=== PATIENT | female | born 1990 | race Caucasian/White ===

== ENCOUNTER 2021-01-25 12:39 | Inpatient (IN) | payer MEDICAID, OTHER ==
[~2021-01-25] VITALS: Ht 167.6 cm; Wt 50.0 kg
--- NOTE | 2021-01-25 12:48 | NUR ---
PT BIB [facility], POST ARREST. PER EMS, PT WAS "WITNESSED" BY HER HOUSEMATE BECOME APNIC, AND EVENTUALY HE STARTED CPR. WHEN EMS ARRIVED, PT FOUND TO BE PULSELESS AND APNIC. CPR CONTINUED AND PT WAS ADMINISTERED EPI X3 ROUNDS WELL NARCAN X2 DOSES. PT WAS INTUBATED IN THE FIELD WITH A 7.0 ET TUBE. WHEN PT ARRIVED TO ER, PT AT ACHIEVED ROSC, HOWEVER REMAINED APNIC WITH BVM RESPIRATIONS IN PROGRESS. PT WITH A STRONG CAROTID PULSE, CORESPONDING WITH MONITORS. PT GCS 3 WHEN ARRIVED TO ER. ERMFang WERNER AND RT RJEI AT BEDSIDE.
[2021-01-25] MEDS ORDERED: ALBUTEROL 0.5%, 20ML ONE (12:51)
--- NOTE | 2021-01-25 12:55 | NUR ---
PT PLACED ON VENT BY REJI RT, TOLERATED WELL. PT ON ETOC2 MONITORING.
[2021-01-25] MEDS ORDERED: SODIUM CHLORIDE FLUSH 10ML SYR IVF ONE (13:00)
[2021-01-25] MEDS ORDERED: methylPREDNISolone SOD SUCC 125 MG/2 ML IV ONE (13:00)
[2021-01-25] MEDS ORDERED: PLEASE ENTER ALLERGIES MC SCH (13:00)
[2021-01-25] MEDS ORDERED: SODIUM CHLORIDE 0.9% 1,000ML IVBOLUS ONE (13:00)
[2021-01-25] MEDS ORDERED: MAGNESIUM SULFATE PMX 2GM/50ML 50 ML IVPB ONE (13:00)
[2021-01-25] MEDS ORDERED: SODIUM CHLORIDE 0.9% 1,000 ML IV ONE (13:00)
[2021-01-25] MEDS ORDERED: PLEASE ENTER HEIGHT AND WEIGHT MC SCH (13:00)
[2021-01-25] MEDS ORDERED: methylPREDNISolone SOD SUCC 125 MG/2 ML ONE (13:03)
[2021-01-25] MEDS ORDERED: MAGNESIUM SULFATE PMX 2GM/50ML 50 ML ONE (13:03)
[2021-01-25] MEDS ORDERED: PROPOFOL 100 ML IV ONE (13:09)
[2021-01-25] MEDS: ALBUTEROL/IPRATROPIUM 2.5MG/0.5MG, 3 ML NPPB PRN (13:14)
[2021-01-25] MEDS ORDERED: PROPOFOL 100 ML IV PRN ×2 (13:30→14:00)
--- NOTE | 2021-01-25 13:30 | NUR ---
REPORT TO NUSRAT SPRINGER FOR BREAK.
--- NOTE | 2021-01-25 13:32 | NUR ---
DR. GALVEZ AT BEDSIDE, INCREASED PROPOFOL TO 20MCG/KG/MIN.
--- NOTE | 2021-01-25 13:49 | NUR ---
AMARJIT WERNER AT BEDSIDE FOR ARTLINE PLACEMENT
[2021-01-25] MEDS ORDERED: LABETALOL 5MG/ML, 20ML IVPush PRN (14:00)
[2021-01-25] MEDS ORDERED: AMPICILLIN/SULBACTAM 3 GM in SODIUM CHLORIDE 0.9% 100 ML IV SCH ×2 (14:00→17:00)
[2021-01-25] MEDS ORDERED: morphine SULFATE 10 MG/ML, 1ML IVPush PRN (14:00)
[2021-01-25] MEDS ORDERED: LIDOCAINE-MPF 1%, 2ML ENDO PRN (14:00)
[2021-01-25] MEDS ORDERED: SENNA/DOCUSATE TABLET NG PRN (14:00)
[2021-01-25] MEDS ORDERED: ENALAPRILAT 1.25 MG/ML, 2ML IVPush PRN (14:00)
[2021-01-25] MEDS ORDERED: POLYETHYLENE GLYCOL 17 GM PACKET PO PRN (14:00)
[2021-01-25] MEDS ORDERED: NOREPINEPHRINE 8 MG in SODIUM CHLORIDE 0.9% 242 ML IV PRN (14:00)
[2021-01-25] MEDS ORDERED: BISACODYL 10 MG SUPP PR PRN ×2 (14:00)
[2021-01-25] MEDS ORDERED: DOCUSATE 100 MG CAPSULE PO PRN (14:00)
[2021-01-25] MEDS ORDERED: LORazepam 2 MG/ML, 1ML IVPush PRN (14:00)
[2021-01-25] MEDS ORDERED: ACETAMINOPHEN 325 MG TABLET PO PRN (14:00)
[2021-01-25] MEDS ORDERED: PHARMACY MAY ADJ FOR RENAL FX MC SCH (14:00)
[2021-01-25] MEDS ORDERED: LACTULOSE 20 GM/30 ML UDC NG PRN (14:00)
[2021-01-25] MEDS ORDERED: ONDANSETRON 2MG/ML, 2ML IVPush PRN (14:00)
[2021-01-25] MEDS ORDERED: OXYcodone IR 5MG TABLET PO PRN (14:00)
[2021-01-25] MEDS ORDERED: MIDAZOLAM HCL 50 MG in SODIUM CHLORIDE 0.9% 40 ML IV PRN (14:00)
[2021-01-25] MEDS ORDERED: SENNA 176 MG/5 ML ORAL SOL NG PRN (14:00)
[2021-01-25 14:03] LABS: INTERNATIONAL NORMALIZED RATIO 0.97 (0.93-1.1); PROTHROMBIN TIME 10.4 Seconds (9.6-11.5)
--- NOTE | 2021-01-25 14:15 | NUR ---
PT ARTLINE PLACEMENT COMPLETED BY DR. WERNER, ARTLINE MONITORING STARTED.
[2021-01-25 14:30] LABS: BASOPHILS % (AUTO) 0 % (0-1); EOSINOPHILS % (AUTO) 5 % (1-7); LYMPHOCYTES % (AUTO) 8 % (22-44); MEAN CORPUSCULAR HEMOGLOBIN 24.7 pg (27.0-34.8); MEAN CORPUSCULAR HGB CONC 30.8 g/dL (32.4-35.8); MEAN PLATELET VOLUME 8.2 fL (7.4-10.4); MONOCYTES % (AUTO) 2 % (2-9); NEUTROPHILS % (AUTO) 85 % (42-75); PLATELET COUNT 354 x10^3/uL (130-400); RED BLOOD COUNT 4.55 x10^6/uL (3.82-5.3); RED CELL DISTRIBUTION WIDTH 17.2 % (9.6-15.2)
[2021-01-25] MEDS ORDERED: SODIUM CHLORIDE 0.9% 1,000 ML IV SCH (14:30)
[2021-01-25] MEDS ORDERED: MAGNESIUM SULFATE 1 GM in DEXTROSE 5% 100 ML IVPB PRN (14:30)
[2021-01-25] MEDS ORDERED: CALCIUM CHLORIDE 13.6 MEQ in SODIUM CHLORIDE 0.9% 100 ML IVPB PRN (14:30)
[2021-01-25] MEDS ORDERED: VECURONIUM 10 MG IVPush ONE ×3 (14:30→20:30)
[2021-01-25] MEDS: KSCALE TO 4.0 IV SCH ×3 (14:30→22:48)
[2021-01-25] MEDS ORDERED: SODIUM PHOSPHATE 20 MMOL in SODIUM CHLORIDE 0.9% 250 ML IVPB PRN (14:30)
[2021-01-25 14:31] LABS: MD NO
[2021-01-25 14:39] LABS: ALBUMIN 2.7 g/dL (3.4-5.0); ANION GAP 8 mmol/L (5-15); CALCIUM 7.1 mg/dL (8.5-10.1); CHLORIDE 109 mmol/L (98-107); SALICYLATE LEVEL 6.5 mg/dL (2.8-20.0)
[2021-01-25] MEDS: SODIUM CHLORIDE 0.9% 1,000 ML IV SCH (14:40)
[2021-01-25 14:42] LABS: ALANINE AMINOTRANSFERASE 37 U/L (12-78); ALKALINE PHOSPHATASE 98 U/L (45-117); BILIRUBIN,TOTAL 0.2 mg/dL (0.2-1.0); CREATININE 0.94 mg/dL (0.55-1.02); TOTAL PROTEIN 6.6 g/dL (6.4-8.2); TRIGLYCERIDES 81 mg/dL (50-200); TROPONIN I 0.084 ng/mL (0.000-0.045)
[2021-01-25] MEDS: methylPREDNISolone SOD SUCC 125 MG/2 ML IVPush SCH ×2 (14:44→20:28)
[2021-01-25 14:47] LABS: FREE T4 (FREE THYROXINE) 1.01 ng/dL (0.76-1.46)
[2021-01-25] MEDS ORDERED: VECURONIUM 10 MG ONE (14:47)
--- NOTE | 2021-01-25 14:50 | NUR ---
PT STARTED ON VERSED GTT PER ORDERS, PT WITH SOME BODY TREMORS, TREMORS DECREASED WITH VERSED GTT, ADMITTING MD AWARE.
--- NOTE | 2021-01-25 15:04 | NUR ---
DR. WERNER AT BEDSIDE, VEC 5.2 MG GIVEN PER ORDERS.
--- NOTE | 2021-01-25 15:15 | NUR ---
PER ERMD, CENTRAL LINE OK TO USE, CONFIRMED BY CXR.
--- NOTE | 2021-01-25 15:30 | NUR ---
PT TO CT. REJI FROM RT AND NUSRAT SPRINGER TO CT WITH PT.
[2021-01-25 16:00] LABS: MICROSCOPIC INDICATED
--- NOTE | 2021-01-25 16:00 | NUR ---
PT BACK FROM CT, PLACED BACK ON ER MONITORS. PT TOLERATING VENT WELL, PT REMAINS ON SEDATION MEDICATIONS PER ORDERS AND PROTOCOL. CONT TO MONITOR.
[2021-01-25 16:05] LABS: AMPHETAMINE SCREEN, URINE Positive (Negative); BARBITURATE SCREEN, URINE Negative (Negative); BENZODIAZEPINE SCREEN, URINE Positive (Negative); CANNABINOID SCREEN, URINE Negative (Negative); COCAINE SCREEN, URINE Negative (Negative); METHADONE SCREEN, URINE Negative (Negative); OPIATE SCREEN, URINE Positive (Negative)
--- NOTE | 2021-01-25 16:20 | NUR ---
REJI FROM RT AT [facility] TO ADJUST PT VENT SETTINGS, PT TOLERATED WELL. CURRENT VENT SETTING vT 400, RR24, FIO2 50%, PEEP 5. PT TOLERATING WELL, PT REMAINS WELL SEDATED, SEDATION MEDICATION TITRATED PER PROTOCOL TO MAINTAIN PROPER PT SEDATION.
--- NOTE | 2021-01-25 16:30 | NUR ---
ALL ARTIC SUN PADS PLACED ON PT. HYPORTHERMIA PROTOCOL STARTED PER ERMD AND ADMITTING MD ORDERS. PT REMAINS ON VENT, TOLERATING WELL. CONTINUOUS TEMP MONITORING CONTINUES. PT REMAINS ON ALL MONITORS, PADS PLACED UNDER ARTIC SUN PADS.
--- NOTE | 2021-01-25 16:40 | NUR ---
REPORT TO JOYA SPRINGER. PT OK TO TRANSPORT TO CCU RM [id number].
--- NOTE | 2021-01-25 17:00 | NUR ---
PT TRANSFERED TO CCU RM 558. BEDSIDE REPORT GIVEN TO JOYA SPRINGER. PT'S JEWLERY BROUGHT WITH PT, GIVEN TO CCU STAFF. PT MOVED TO CCU BED WITHOUT INCIDENT. TRANSFER OF CARE COMPLETED.
[2021-01-25] MEDS: MIDAZOLAM HCL 50 MG in SODIUM CHLORIDE 0.9% 40 ML IV PRN (17:12)
[2021-01-25 17:40] VITALS: BP 117/65
[2021-01-25 17:47] LABS: TROPONIN I 0.111 ng/mL (0.000-0.045)
[2021-01-25] MEDS: BUSPIRONE 10 MG TABLET NG SCH (17:52)
[2021-01-25] MEDS: HEPARIN 5,000 UNITS/ML, 1ML SQ SCH (17:52)
[2021-01-25] MEDS ORDERED: POTASSIUM CHLORIDE 10 MEQ in SODIUM CHLORIDE 0.9% 250 ML IV ONE (18:30)
[2021-01-25] MEDS ORDERED: POTASSIUM CHLORIDE PMX 100 ML IV ONE ×2 (19:30→22:30)
[2021-01-25] MEDS: ARTIFICIAL TEARS OINT 3.5 GM EACHEYE SCH ×2 (19:35→22:48)
[2021-01-25] MEDS: NOREPINEPHRINE 8 MG in SODIUM CHLORIDE 0.9% 242 ML IV PRN (20:06)
[2021-01-25] MEDS: PROPOFOL 100 ML IV PRN (20:41)
[2021-01-25] MEDS ORDERED: LEVETIRACETAM 1,000 MG in SODIUM CHLORIDE 0.9% 100 ML IV ONE (21:00)
[2021-01-25] MEDS ORDERED: FAMOTIDINE 20 MG/2 ML IVPush SCH (21:00)
[2021-01-25] MEDS ORDERED: MAGNESIUM SULFATE PMX 4GM/100M 100 ML IVPB ONE (21:30)
[2021-01-25] MEDS ORDERED: INSULIN REGULAR 100 UNITS/ML, 3ML VIAL IVPush ONE (22:00)
[2021-01-25] MEDS: ALBUTEROL SULFATE 2.5 MG/3 ML NPPB PRN (22:04)
[2021-01-25] MEDS: FENTANYL PF 1,000 MCG in SODIUM CHLORIDE 0.9% 80 ML IV PRN (22:12)
[2021-01-25] MEDS: REGULAR INSULIN 100 UNITS in SODIUM CHLORIDE 0.9% 99 ML IV PRN (22:49)
[2021-01-26] MEDS: MIDAZOLAM HCL 50 MG in SODIUM CHLORIDE 0.9% 40 ML IV PRN ×3 (00:46→20:59)
[2021-01-26] MEDS ORDERED: VECURONIUM 10 MG ONE ×2 (00:58→09:34)
[2021-01-26] MEDS ORDERED: VECURONIUM 10 MG IVPush ONE ×3 (01:00→10:00)
[2021-01-26] MEDS: BUSPIRONE 10 MG TABLET NG SCH ×3 (01:02→17:06)
[2021-01-26] MEDS: HEPARIN 5,000 UNITS/ML, 1ML SQ SCH ×3 (01:03→17:06)
[2021-01-26] MEDS ORDERED: MAGNESIUM SULFATE PMX 4GM/100M 100 ML IVPB ONE ×2 (01:30)
[2021-01-26] MEDS: methylPREDNISolone SOD SUCC 125 MG/2 ML IVPush SCH ×4 (01:54→19:53)
[2021-01-26] MEDS: ALBUTEROL SULFATE 2.5 MG/3 ML NPPB PRN ×3 (02:53→10:29)
[2021-01-26] MEDS: KSCALE TO 4.0 IV SCH ×6 (03:27→22:30)
[2021-01-26] MEDS: SODIUM CHLORIDE 0.9% 1,000 ML IV SCH ×2 (03:27→17:05)
[2021-01-26] MEDS ORDERED: POTASSIUM CHLORIDE PMX 100 ML IV ONE ×2 (04:00→07:30)
[2021-01-26 04:53] LABS: BASOPHILS % (AUTO) 0 % (0-1); EOSINOPHILS % (AUTO) 0 % (1-7); LYMPHOCYTES % (AUTO) 2 % (22-44); MEAN CORPUSCULAR HEMOGLOBIN 24.8 pg (27.0-34.8); MEAN CORPUSCULAR HGB CONC 31.2 g/dL (32.4-35.8); MEAN PLATELET VOLUME 7.9 fL (7.4-10.4); MONOCYTES % (AUTO) 2 % (2-9); NEUTROPHILS % (AUTO) 96 % (42-75); PLATELET COUNT 283 x10^3/uL (130-400); RED BLOOD COUNT 4.78 x10^6/uL (3.82-5.3); RED CELL DISTRIBUTION WIDTH 17.2 % (9.6-15.2)
[2021-01-26 04:58] LABS: MD NO
[2021-01-26] MEDS ORDERED: BUSPIRONE 5 MG TABLET ONE (05:31)
[2021-01-26 05:37] LABS: ANION GAP 9 mmol/L (5-15); CALCIUM 7.1 mg/dL (8.5-10.1); CHLORIDE 112 mmol/L (98-107); CREATININE 0.62 mg/dL (0.55-1.02)
[2021-01-26 05:38] LABS: ALANINE AMINOTRANSFERASE 40 U/L (12-78); ALBUMIN 2.7 g/dL (3.4-5.0)
[2021-01-26 05:39] LABS: ALKALINE PHOSPHATASE 81 U/L (45-117); BILIRUBIN,TOTAL 0.3 mg/dL (0.2-1.0); TOTAL PROTEIN 6.7 g/dL (6.4-8.2)
[2021-01-26] MEDS: ARTIFICIAL TEARS OINT 3.5 GM EACHEYE SCH ×3 (05:40→22:11)
[2021-01-26] MEDS: PROPOFOL 100 ML IV PRN ×2 (05:40→14:40)
[2021-01-26] MEDS: AMPICILLIN/SULBACTAM 3 GM in SODIUM CHLORIDE 0.9% 100 ML IV SCH ×3 (07:34→19:52)
[2021-01-26] MEDS: FAMOTIDINE 20 MG/2 ML IVPush SCH ×2 (09:31→22:11)
[2021-01-26] MEDS ORDERED: PHENYTOIN SODIUM 1,000 MG in SODIUM CHLORIDE 0.9% 100 ML IV ONE (10:00)
[2021-01-26] MEDS ORDERED: FILTER 0.22 MICRON FOR PHENYTOIN IV ONE (12:00)
[2021-01-26] MEDS ORDERED: FILTER 0.22 MICRON FOR PHENYTOIN IV PRN (12:00)
[2021-01-26] MEDS: ALBUTEROL SULFATE 2.5 MG/3 ML NPPB SCH ×3 (14:38→22:26)
[2021-01-26] MEDS: REGULAR INSULIN 100 UNITS in SODIUM CHLORIDE 0.9% 99 ML IV PRN (17:06)
[2021-01-26] MEDS: NOREPINEPHRINE 8 MG in SODIUM CHLORIDE 0.9% 242 ML IV PRN (20:33)
[2021-01-27] MEDS: HEPARIN 5,000 UNITS/ML, 1ML SQ SCH ×3 (01:03→16:32)
[2021-01-27] MEDS: BUSPIRONE 10 MG TABLET NG SCH ×3 (01:03→16:31)
[2021-01-27] MEDS: methylPREDNISolone SOD SUCC 125 MG/2 ML IVPush SCH ×3 (01:24→16:32)
[2021-01-27] MEDS: AMPICILLIN/SULBACTAM 3 GM in SODIUM CHLORIDE 0.9% 100 ML IV SCH ×4 (01:24→19:46)
[2021-01-27] MEDS: PROPOFOL 100 ML IV PRN ×3 (01:24→15:53)
[2021-01-27] MEDS: ALBUTEROL SULFATE 2.5 MG/3 ML NPPB SCH ×6 (02:20→22:28)
[2021-01-27] MEDS: KSCALE TO 4.0 IV SCH ×5 (02:30→19:30)
[2021-01-27 03:52] LABS: BASOPHILS % (AUTO) 1 % (0-1); EOSINOPHILS % (AUTO) 0 % (1-7); LYMPHOCYTES % (AUTO) 3 % (22-44); MEAN CORPUSCULAR HEMOGLOBIN 24.7 pg (27.0-34.8); MEAN CORPUSCULAR HGB CONC 31.9 g/dL (32.4-35.8); MEAN PLATELET VOLUME 8.1 fL (7.4-10.4); MONOCYTES % (AUTO) 3 % (2-9); NEUTROPHILS % (AUTO) 93 % (42-75); PLATELET COUNT 370 x10^3/uL (130-400); RED BLOOD COUNT 4.76 x10^6/uL (3.82-5.3); RED CELL DISTRIBUTION WIDTH 17.7 % (9.6-15.2)
[2021-01-27 03:53] LABS: MD NO
[2021-01-27 04:02] LABS: ANION GAP 4 mmol/L (5-15); CALCIUM 7.6 mg/dL (8.5-10.1); CHLORIDE 117 mmol/L (98-107)
[2021-01-27 04:03] LABS: CREATININE 0.46 mg/dL (0.55-1.02)
[2021-01-27] MEDS: MIDAZOLAM HCL 50 MG in SODIUM CHLORIDE 0.9% 40 ML IV PRN ×2 (05:44→16:28)
[2021-01-27] MEDS: FENTANYL PF 1,000 MCG in SODIUM CHLORIDE 0.9% 80 ML IV PRN ×2 (05:44→21:17)
[2021-01-27] MEDS: SODIUM CHLORIDE 0.9% 1,000 ML IV SCH ×2 (06:00→22:09)
[2021-01-27] MEDS: ARTIFICIAL TEARS OINT 3.5 GM EACHEYE SCH ×3 (06:17→22:08)
[2021-01-27] MEDS: FAMOTIDINE 20 MG/2 ML IVPush SCH ×2 (07:58→22:07)
[2021-01-27] MEDS ORDERED: SODIUM CHLORIDE 0.9%, 500ML IVBOLUS ONE (11:00)
[2021-01-28] MEDS: HEPARIN 5,000 UNITS/ML, 1ML SQ SCH ×3 (00:37→17:22)
[2021-01-28] MEDS: PROPOFOL 100 ML IV PRN ×4 (00:38→21:54)
[2021-01-28] MEDS: AMPICILLIN/SULBACTAM 3 GM in SODIUM CHLORIDE 0.9% 100 ML IV SCH ×4 (01:55→20:37)
[2021-01-28] MEDS: ALBUTEROL SULFATE 2.5 MG/3 ML NPPB SCH ×6 (02:40→22:28)
[2021-01-28] MEDS: MIDAZOLAM HCL 50 MG in SODIUM CHLORIDE 0.9% 40 ML IV PRN ×3 (02:59→20:38)
[2021-01-28 04:16] LABS: BASOPHILS % (AUTO) 0 % (0-1); EOSINOPHILS % (AUTO) 0 % (1-7); LYMPHOCYTES % (AUTO) 9 % (22-44); MEAN CORPUSCULAR HEMOGLOBIN 24.8 pg (27.0-34.8); MEAN CORPUSCULAR HGB CONC 32.1 g/dL (32.4-35.8); MEAN PLATELET VOLUME 8.3 fL (7.4-10.4); MONOCYTES % (AUTO) 7 % (2-9); NEUTROPHILS % (AUTO) 84 % (42-75); PLATELET COUNT 310 x10^3/uL (130-400); RED BLOOD COUNT 4.05 x10^6/uL (3.82-5.3); RED CELL DISTRIBUTION WIDTH 17.7 % (9.6-15.2)
[2021-01-28 04:18] LABS: ANION GAP 5 mmol/L (5-15); CALCIUM 7.7 mg/dL (8.5-10.1); CHLORIDE 116 mmol/L (98-107); CREATININE 0.51 mg/dL (0.55-1.02); TRIGLYCERIDES 167 mg/dL (50-200)
[2021-01-28 04:40] LABS: MD MORPH REVIEW ONLY
[2021-01-28 04:41] LABS: ANISOCYTOSIS 1+; ECHINOCYTES 1+; HYPOCHROMIA 1+; MICROCYTOSIS 1+; OVALOCYTES 1+
[2021-01-28 04:42] LABS: <PLATELET ESTIMATE> ADEQUATE; <PLT MORPHOLOGY> NORMAL PLT MORPH
[2021-01-28] MEDS: ARTIFICIAL TEARS OINT 3.5 GM EACHEYE SCH ×2 (06:00→14:56)
[2021-01-28] MEDS ORDERED: PHENYTOIN SODIUM 1,000 MG in SODIUM CHLORIDE 0.9% 100 ML IV ONE (08:30)
[2021-01-28] MEDS ORDERED: FILTER 0.22 MICRON FOR PHENYTOIN IV ONE (08:30)
[2021-01-28] MEDS: methylPREDNISolone SOD SUCC 125 MG/2 ML IVPush SCH ×2 (08:44→17:22)
[2021-01-28] MEDS: FAMOTIDINE 20 MG/2 ML IVPush SCH ×2 (10:08→22:47)
[2021-01-28] MEDS: LEVETIRACETAM 1,000 MG in SODIUM CHLORIDE 0.9% 100 ML IV SCH ×2 (10:08→22:47)
--- NOTE | 2021-01-28 11:38 | NUR ---
Tube feed : Promote, goal: 55 ml/hr on propofol, 65 ml/hr off propofol. Addendum: 01/28/21 at [address] Amended: Links added.
[2021-01-28] MEDS: SODIUM CHLORIDE 0.9% 1,000 ML IV SCH (14:56)
[2021-01-28] MEDS: FENTANYL PF 1,000 MCG in SODIUM CHLORIDE 0.9% 80 ML IV PRN (14:56)
[2021-01-28] MEDS: NOREPINEPHRINE 8 MG in SODIUM CHLORIDE 0.9% 242 ML IV PRN (16:28)
[2021-01-29] MEDS: MIDAZOLAM HCL 50 MG in SODIUM CHLORIDE 0.9% 40 ML IV PRN ×5 (00:25→21:28)
[2021-01-29] MEDS: HEPARIN 5,000 UNITS/ML, 1ML SQ SCH ×2 (01:47→09:07)
[2021-01-29] MEDS: AMPICILLIN/SULBACTAM 3 GM in SODIUM CHLORIDE 0.9% 100 ML IV SCH ×2 (01:47→07:18)
[2021-01-29] MEDS: ALBUTEROL SULFATE 2.5 MG/3 ML NPPB SCH ×3 (02:26→11:30)
[2021-01-29] MEDS: PROPOFOL 100 ML IV PRN ×2 (03:23→09:07)
[2021-01-29 05:07] LABS: BASOPHILS % (AUTO) 0 % (0-1); EOSINOPHILS % (AUTO) 0 % (1-7); LYMPHOCYTES % (AUTO) 19 % (22-44); MD NO; MEAN CORPUSCULAR HEMOGLOBIN 25.5 pg (27.0-34.8); MEAN CORPUSCULAR HGB CONC 32.6 g/dL (32.4-35.8); MONOCYTES % (AUTO) 5 % (2-9); NEUTROPHILS % (AUTO) 75 % (42-75); PLATELET COUNT 261 x10^3/uL (130-400); RED CELL DISTRIBUTION WIDTH 17.3 % (9.6-15.2)
[2021-01-29 05:16] LABS: ANION GAP 3 mmol/L (5-15); CALCIUM 7.8 mg/dL (8.5-10.1); CHLORIDE 110 mmol/L (98-107)
[2021-01-29 05:19] LABS: CREATININE 0.49 mg/dL (0.55-1.02)
[2021-01-29] MEDS ORDERED: methylPREDNISolone SOD SUCC 125 MG/2 ML IVPush SCH (09:00)
[2021-01-29] MEDS: FAMOTIDINE 20 MG/2 ML IVPush SCH (09:07)
[2021-01-29] MEDS: LEVETIRACETAM 1,000 MG in SODIUM CHLORIDE 0.9% 100 ML IV SCH (09:54)
[2021-01-29] MEDS: FENTANYL PF 1,000 MCG in SODIUM CHLORIDE 0.9% 80 ML IV PRN ×3 (12:11→21:17)
[2021-01-29] MEDS ORDERED: SCOPOLAMINE PATCH, 1.5MG PATCH.TD72 TD PRN (14:30)
[2021-01-29] MEDS ORDERED: ONDANSETRON 2MG/ML, 2ML IV PRN (14:30)
[2021-01-29] MEDS: ATROPINE OPHTH SOLN 1%, 5ML PO PRN ×4 (18:29→22:55)
[2021-01-29] MEDS ORDERED: FENTANYL PF 1,000 MCG in SODIUM CHLORIDE 0.9% 80 ML IV PRN (23:30)
[2021-01-30] MEDS: ATROPINE OPHTH SOLN 1%, 5ML PO PRN (01:03)
[2021-01-30] MEDS ORDERED: FENTANYL PF 2,500 MCG in SODIUM CHLORIDE 0.9% 200 ML IV PRN ×2 (01:30→02:00)
[2021-01-30] MEDS ORDERED: MIDAZOLAM HCL 100 MG in SODIUM CHLORIDE 0.9% 80 ML IV PRN (04:00)
[2021-01-30] MEDS ORDERED: MIDAZOLAM HCL 50 MG in SODIUM CHLORIDE 0.9% 40 ML IV PRN (14:30)
== END 2021-01-30 09:05 | disposition expired | DRG 207 ==
LOC: ED 13:55 → EDBD 14:03 → EDIP 14:03 → CCU 16:45 → 4NW 01-29 18:33
PROVIDERS: ADMIT Internal Medicine; ATTEND Internal Medicine
PROC: 5A1955Z Respiratory Ventilation, Greater than 96 Consecutive Hours (ICD-10-PCS; principal; 2021-01-25)
PROC: 0BH17EZ Insertion of Endotracheal Airway into Trachea, Via Natural or Artificial Opening (ICD-10-PCS; 2021-01-25)
PROC: 0T9B70Z Drainage of Bladder with Drainage Device, Via Natural or Artificial Opening (ICD-10-PCS; 2021-01-25)
PROC: 03HY32Z Insertion of Monitoring Device into Upper Artery, Percutaneous Approach (ICD-10-PCS; 2021-01-25)
PROC: 02HV33Z Insertion of Infusion Device into Superior Vena Cava, Percutaneous Approach (ICD-10-PCS; 2021-01-25)
PROC: B548ZZA Ultrasonography of Superior Vena Cava, Guidance (ICD-10-PCS; 2021-01-25)
DX: J96.00 Acute respiratory failure, unspecified whether with hypoxia or hypercapnia (principal); J69.0 Pneumonitis due to inhalation of food and vomit; E43 Unspecified severe protein-calorie malnutrition; G93.41 Metabolic encephalopathy; G93.1 Anoxic brain damage, not elsewhere classified; J45.52 Severe persistent asthma with status asthmaticus; B19.20 Unspecified viral hepatitis C without hepatic coma; D64.9 Anemia, unspecified; G40.901 Epilepsy, unspecified, not intractable, with status epilepticus; I46.9 Cardiac arrest, cause unspecified; K21.9 Gastro-esophageal reflux disease without esophagitis; R73.9 Hyperglycemia, unspecified; F19.10 Other psychoactive substance abuse, uncomplicated; F15.10 Other stimulant abuse, uncomplicated; Z51.5 Encounter for palliative care
CPT/HCPCS: 36415; 36600; 87806; 96360; 99285; J7613; 70450; 70551; 71045; 71250; 80048; 80053; 80074; 80299; 80307; 80320; 80329; 81001; 81025; 82330; 82803; 82962; 83605; 83735; 83880; 84100; 84132; 84439; 84443; 84478; 84484; 85025; 85610; 85730; 87040; 87070; 87081; 87086; 87205; 87521; 93005; 93306; 94002; 94003; 94640; 95819; G0378; J0295; J1165; J1644; J1815; J1953; J2250; J2704; J3010; J3480; G0475; G0480; J2930; J3475; J7030; J7040; J7050